=== PATIENT | female | born 1995 | race Two or more races ===

== ENCOUNTER → 2023-11-13 | Outpatient (CLI) | payer OTHER | LOC: M WHC 14:04 | PROVIDERS: ATTEND Advanced Practice Midwife | DX: Z34.82 Encounter for supervision of other normal pregnancy, second trimester (principal) ==

== ENCOUNTER → 2023-11-13 | Outpatient (CLI) | payer OTHER, SELFPAY ==
[2023-11-13 19:02] LABS: HEMATOCRIT 32.3 % (36.0-47.0); MEAN CORPUSCULAR HEMOGLOBIN 30.8 pg (27.0-33.0); MEAN CORPUSCULAR HGB CONC 34.1 g/dl (32.0-36.5); MEAN CORPUSCULAR VOLUME 90.5 fl (80.0-96.0); PLATELET COUNT, AUTOMATED 285 10^3/uL (150-450); RED BLOOD COUNT 3.57 10^6/uL (4.00-5.40); WHITE BLOOD COUNT 11.4 10^3/uL (4.0-10.0)
[2023-11-13 19:38] LABS: THYROID STIMULATING HORMONE 1.398 uIU/ML (0.55-4.78)
[2023-11-13 20:08] LABS: HIV 1&2 SCREEN NEGATIVE (NEGATIVE)
[2023-11-13 20:16] LABS: HEPATITIS C VIRUS ABY INDEX 0.05 INDEX (<0.8)
[2023-11-13 22:19] LABS: GC DNA AMPLIFICATION NEGATIVE (NEGATIVE)
== END ==
LOC: M PLALAB 14:18
PROVIDERS: ATTEND Advanced Practice Midwife
DX: Z34.82 Encounter for supervision of other normal pregnancy, second trimester (principal)

== ENCOUNTER → 2023-12-11 | Outpatient (CLI) | payer OTHER | LOC: M WHC 06:40 | PROVIDERS: ATTEND Advanced Practice Midwife | DX: Z34.82 Encounter for supervision of other normal pregnancy, second trimester (principal) ==

== ENCOUNTER → 2023-12-11 | Outpatient (REF) | payer OTHER | LOC: M PLALAB 16:39 | PROVIDERS: ATTEND Advanced Practice Midwife | DX: Z34.82 Encounter for supervision of other normal pregnancy, second trimester (principal) ==

== ENCOUNTER 2024-01-15 22:07 | Outpatient (CLI) | payer OTHER ==
[~2024-01-15] VITALS: Ht 154.9 cm; Wt 82.4 kg
[2024-01-15 22:28] VITALS: BP 120/66
[2024-01-15] MEDS ORDERED: PRENTAB9 PO (22:53)
[2024-01-16 00:35] LABS: Trichomonas vaginalis (AMP) NOT DETECTED (NEGATIVE)
[2024-01-16 00:59] LABS: GC DNA AMPLIFICATION NEGATIVE (NEGATIVE)
== END 2024-01-15 23:00 | disposition home or self-care (01) ==
LOC: M LDO 22:07
PROVIDERS: ATTEND Obstetrics & Gynecology
DX: O26.892 Other specified pregnancy related conditions, second trimester (principal); O36.8120 Decreased fetal movements, second trimester, not applicable or unspecified; N89.8 Other specified noninflammatory disorders of vagina; Z3A.24 24 weeks gestation of pregnancy
CPT/HCPCS: 59025; 87661; 87810; 87850; G0463

== ENCOUNTER → 2024-02-18 | Outpatient (CLI) | payer OTHER ==
[~2024-02-18] MED LIST: PRENTAB9 PO
[2024-02-18 12:42] LABS: HEMATOCRIT 28.8 % (36.0-47.0); HEMOGLOBIN 9.5 g/dl (12.0-15.5); MEAN CORPUSCULAR HEMOGLOBIN 30.3 pg (27.0-33.0); MEAN CORPUSCULAR VOLUME 91.7 fl (80.0-96.0); PLATELET COUNT, AUTOMATED 266 10^3/uL (150-450); RED BLOOD COUNT 3.14 10^6/uL (4.00-5.40); WHITE BLOOD COUNT 11.8 10^3/uL (4.0-10.0)
[2024-02-18 12:45] LABS: GLUCOSE CHALLENGE TEST 1 HOUR 137 MG/DL (LESS THAN 140)
[2024-02-18 13:20] LABS: HIV 1&2 SCREEN NEGATIVE (NEGATIVE)
[2024-02-18 13:27] LABS: HEPATITIS C VIRUS ABY INDEX 0.04 INDEX (<0.8)
[2024-02-18 14:17] LABS: GC DNA AMPLIFICATION NEGATIVE (NEGATIVE)
== END ==
LOC: M PLALAB 08:28
PROVIDERS: ATTEND Obstetrics & Gynecology
DX: Z34.83 Encounter for supervision of other normal pregnancy, third trimester (principal); Z3A.29 29 weeks gestation of pregnancy

== ENCOUNTER → 2024-02-18 | Outpatient (CLI) | payer OTHER | LOC: M WHC 07:40 | PROVIDERS: ATTEND Obstetrics & Gynecology | DX: Z34.83 Encounter for supervision of other normal pregnancy, third trimester (principal); Z3A.29 29 weeks gestation of pregnancy ==

== ENCOUNTER → 2024-02-25 | Outpatient (CLI) | payer OTHER | LOC: M LAB 07:22 | PROVIDERS: ATTEND Obstetrics & Gynecology | DX: R73.09 Other abnormal glucose (principal) ==

== ENCOUNTER → 2024-02-26 | Outpatient (CLI) | payer OTHER ==
[2024-02-26 19:45] LABS: ALKALINE PHOSPHATASE 66 U/L (46-116); ALT/SGPT 11 U/L (7.0-40); AST/SGOT 9 U/L (<34); BILIRUBIN,DIRECT < 0.1 MG/DL (<0.4); BILIRUBIN,TOTAL 0.3 MG/DL (0.3-1.2); TOTAL PROTEIN 6.7 G/DL (5.7-8.2)
== END ==
LOC: M PLALAB 15:01
PROVIDERS: ATTEND Obstetrics & Gynecology
DX: Z34.83 Encounter for supervision of other normal pregnancy, third trimester (principal)

== ENCOUNTER → 2024-04-02 | Outpatient (REF) | payer OTHER | LOC: M PLALAB 15:16 | PROVIDERS: ATTEND Advanced Practice Midwife | DX: Z36.89 Encounter for other specified antenatal screening (principal); Z3A.36 36 weeks gestation of pregnancy ==

== ENCOUNTER 2024-05-01 18:39 | Inpatient (IN) | payer OTHER ==
[~2024-05-01] VITALS: Ht 152.4 cm; Wt 85.0 kg
[2024-05-01] MEDS ORDERED: HOME MED LIST COMPLETE! XX SCH (18:50)
[2024-05-01 19:16] VITALS: BP 129/68
[2024-05-01] MEDS ORDERED: RHOGAM 300MCG (1500IU) INJ IM SCH (19:25)
[2024-05-01] MEDS ORDERED: ANUSOL HC CREAM 30GM TOP PRN (19:25)
[2024-05-01] MEDS ORDERED: OXYTOCIN DRIP 30 UNITS in IV 1 EA IV PRN (19:25)
[2024-05-01] MEDS ORDERED: MOM 30ML SUSPENSION UDC PO PRN (19:25)
[2024-05-01] MEDS ORDERED: IBUPROFEN 800 MG TAB PO PRN (19:25)
[2024-05-01] MEDS ORDERED: METHYLERGONOVINE MALEATE 0.2 MG TAB PO PRN (19:25)
[2024-05-01] MEDS ORDERED: DIBUCAINE 1% OINTMENT 30GM TOP PRN (19:25)
[2024-05-01] MEDS ORDERED: DOCUSATE SODIUM 100MG CAPSULE PO PRN (19:25)
[2024-05-01] MEDS ORDERED: LR 1,000 ML IV SCH (19:25)
[2024-05-01] MEDS ORDERED: CALCIUM CARBONATE 500 MG CHEW U/D PO PRN (19:25)
[2024-05-01] MEDS ORDERED: IBUPROFEN 600MG TAB PO PRN (19:25)
[2024-05-01] MEDS ORDERED: OXYTOCIN DRIP 30 UNITS in IV 1 EA IV SCH (19:25)
[2024-05-01] MEDS ORDERED: ACETAMINOPHEN 500 MG TAB PO PRN (19:25)
[2024-05-01] MEDS ORDERED: ACETAMINOPHEN 325 MG TAB PO PRN (19:25)
[2024-05-01 19:48] LABS: HEMATOCRIT 32.7 % (36.0-47.0); HEMOGLOBIN 10.8 g/dl (12.0-15.5); MEAN CORPUSCULAR HEMOGLOBIN 28.1 pg (27.0-33.0); MEAN CORPUSCULAR VOLUME 85.2 fl (80.0-96.0); PLATELET COUNT, AUTOMATED 290 10^3/uL (150-450); RED BLOOD COUNT 3.84 10^6/uL (4.00-5.40); WHITE BLOOD COUNT 11.1 10^3/uL (4.0-10.0)
[2024-05-01] MEDS: miSOPROStol 50MCG 1/2 TABLET PO SCH (20:14)
[2024-05-01 20:40] LABS: HEPATITIS C VIRUS ABY INDEX 0.02 INDEX (<0.8)
[2024-05-01] MEDS ORDERED: METHYLERGONOVINE MALEATE 0.2MG/ML 1ML VIAL IM PRN (21:00)
[2024-05-01] MEDS ORDERED: LIDOCAINE 1% MDV 20ML VIAL INFIL PRN (21:00)
[2024-05-01] MEDS ORDERED: TRANEXAMIC ACID INJection 1,000 MG in NS 100 ML IV PRN (21:00)
[2024-05-02] VITALS (41 sets, daily range): BP systolic 90–137; BP diastolic 50–84; O2SAT 97
[2024-05-02] MEDS ORDERED: PRENATAL VITAMINS CHEWABLE TABLET PO SCH (09:00)
[2024-05-02] MEDS ORDERED: OXYTOCIN DRIP 30 UNITS in IV 1 EA IV PRN (11:10)
[2024-05-02] MEDS ORDERED: NALOXONE INJ 0.4MG/1ML VIAL IV PRN (11:40)
[2024-05-02] MEDS ORDERED: EPIDURAL/PCA KEYS XX PRN (11:40)
[2024-05-02] MEDS ORDERED: diphenhydrAMINE 50MG/ML VIAL IV PRN (11:40)
[2024-05-02] MEDS ORDERED: FENTANYL 2MCG/ML ROPIVACAINE 0.2% IN 0.9% NACL 100ML IVBAG As Ordered ONE (12:04)
[2024-05-02] MEDS: FENTANYL/ROPIVACAINE/NACL BAG 100 ML EPIDURAL SCH (12:11)
[2024-05-02] MEDS: ePHEDrine SULFATE 25 MG/5 ML(5MG/ML) SYRINGE IVP PRN (13:55)
[2024-05-02] MEDS: LR 500 ML IV PRN (13:56)
[2024-05-02] MEDS: OXYTOCIN DRIP 30 UNITS in IV 1 EA IV SCH (15:50)
[2024-05-02] MEDS: LR 1,000 ML IV SCH (16:30)
[2024-05-02] MEDS: ONDANSETRON 4MG 2ML VIAL IV PRN (19:02)
[2024-05-02] MEDS ORDERED: ANUSOL HC CREAM 30GM TOP PRN (23:25)
[2024-05-02] MEDS ORDERED: MOM 30ML SUSPENSION UDC PO PRN (23:25)
[2024-05-02] MEDS ORDERED: IBUPROFEN 600MG TAB PO PRN (23:25)
[2024-05-02] MEDS ORDERED: RHOGAM 300MCG (1500IU) INJ IM SCH (23:25)
[2024-05-02] MEDS ORDERED: ACETAMINOPHEN 325 MG TAB PO PRN (23:25)
[2024-05-03] MEDS: IBUPROFEN 800 MG TAB PO PRN (00:58)
[2024-05-03 01:08] VITALS: BP 122/59; O2SAT 98
[2024-05-03] MEDS: DIBUCAINE 1% OINTMENT 30GM TOP PRN (04:03)
[2024-05-03] MEDS: ACETAMINOPHEN 500 MG TAB PO PRN (04:03)
[2024-05-03 06:00] VITALS: BP 105/54; O2SAT 98
[2024-05-03] MEDS: PRENATAL VITAMINS CHEWABLE TABLET PO SCH (07:48)
[2024-05-03] MEDS: DOCUSATE SODIUM 100MG CAPSULE PO PRN (08:41)
[2024-05-03] MEDS ORDERED: MEASLES,MUMPS,RUBELLA VACCINE INJ (MMR-II) SC.IMMUN ONE (09:00)
[2024-05-03 18:00] VITALS: BP 113/54; O2SAT 97
[2024-05-04 06:04] VITALS: BP 122/63; O2SAT 98
[2024-05-04] MEDS: MEASLES,MUMPS,RUBELLA VACCINE INJ (MMR-II) SC.IMMUN ONE (09:00)
[2024-05-04] MEDS ORDERED: ACET32TAB PO (10:08)
[2024-05-04] MEDS ORDERED: IBUP80TA PO (10:08)
== END 2024-05-04 18:08 | disposition home or self-care (01) | DRG 807 ==
LOC: M LDI 18:39 → M OBS 05-03 01:04
PROVIDERS: ADMIT Obstetrics & Gynecology; ATTEND Advanced Practice Midwife
PROC: 3E033VJ Introduction of Other Hormone into Peripheral Vein, Percutaneous Approach (ICD-10-PCS; 2024-05-01)
PROC: 10E0XZZ Delivery of Products of Conception, External Approach (ICD-10-PCS; principal; 2024-05-02)
PROC: 0KQM0ZZ Repair Perineum Muscle, Open Approach (ICD-10-PCS; 2024-05-02)
DX: O48.0 Post-term pregnancy (principal); Z37.0 Single live birth; Z3A.40 40 weeks gestation of pregnancy; Z88.2 Allergy status to sulfonamides; O70.1 Second degree perineal laceration during delivery

== ENCOUNTER → 2024-05-26 | Outpatient (CLI) | payer OTHER ==
[~2024-05-26] MED LIST changes: +ACET32TAB PO; +IBUP80TA PO
[2024-05-26 13:16] LABS: PERCENT SATURATION 11.2 % (13.2-45.0)
[2024-05-26 13:22] LABS: BASO % 0.3 % (0.0-1.0); EOS # 0.3 10^3/uL (0.0-0.5); EOS % 2.9 % (0.0-3.0); HEMOGLOBIN 11.2 g/dl (12.0-15.5); LYMPH % 32.6 % (24.0-44.0); MEAN CORPUSCULAR HEMOGLOBIN 27.6 pg (27.0-33.0); MEAN CORPUSCULAR VOLUME 86.2 fl (80.0-96.0); MONO # 0.6 10^3/uL (0.0-0.8); MONO % 6.8 % (2.0-8.0); NEUTROPHILS # 5.2 10^3/uL (1.5-8.5); NEUTROPHILS % 57.1 % (36.0-66.0); PLATELET COUNT, AUTOMATED 331 10^3/uL (150-450); RED BLOOD COUNT 4.06 10^6/uL (4.00-5.40); WHITE BLOOD COUNT 9.2 10^3/uL (4.0-10.0)
== END ==
LOC: M PLALAB 11:25
PROVIDERS: ATTEND Nurse Practitioner Adult Health
DX: Z11.1 Encounter for screening for respiratory tuberculosis (principal)